=== PATIENT | male | born 1995 | race Caucasian/White ===

== ENCOUNTER 2017-05-15 15:21 | Inpatient (IN) | payer OTHER ==
--- NOTE | 2017-05-15 16:03 | ED ---
Psychiatric Complaint - HPI Summary HPI Summary: 21M presents with suicidal ideation that have been getting worst the past three weeks. 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 He has had suicide attempts in past in high school. He says he would jump off a bridge but he is too scared of heights to do it currently. He states he is depressed because he does not know what he is going to do with his life. He denies any psych diagnosis. He denies any previous admission for psych reasons. He occasionally smokes, drinks ETOH and uses marijiuna. - History Of Current Complaint Chief Complaint: EDMentalHealth Time Seen by Provider: 05/15/17 15:28 - Allergies/Home Medications Allergies/Adverse Reactions: Allergies Allergy/AdvReac Type Severity Reaction Status Date / Time No Known Allergies Allergy Verified 05/15/17 15:21 PMH/Surg Hx/FS Hx/Imm Hx Endocrine/Hematology History: Denies: Hx Anticoagulant Therapy Opthamlomology History: Reports: Hx Contacts or Glasses, Hx Legally Blind Infectious Disease History: Denies: Traveled Outside the [place] in Last 30 Days - Family History Known Family History: Positive: Other - depression - Social History Alcohol Use: Occasionally Substance Use Type: Reports: Marijuana Smoking Status (MU): Light Every Day Tobacco Smoker Review of Systems Negative: Fever Negative: Chest Pain Negative: Shortness Of Breath Positive: Depressed All Other Systems Reviewed And Are Negative: Yes Physical Exam Triage Information Reviewed: Yes Vital Signs On Initial Exam: Initial Vitals Temp Pulse Resp BP Pulse Ox 97.8 F 93 16 141/96 97 05/15/17 15:21 05/15/17 15:21 05/15/17 15:21 05/15/17 15:21 05/15/17 15:21 Vital Signs Reviewed: Yes Appearance: Positive: Well-Appearing Skin: Positive: Warm, Dry Head/Face: Positive: Normal Head/Face Inspection Eyes: Positive: Normal, Conjunctiva Clear Respiratory/Lung Sounds: Positive: Clear to Auscultation, Breath Sounds Present Cardiovascular: Positive: Normal, RRR Abdomen Description: Positive: Nontender, Soft Bowel Sounds: Positive: Present Diagnostics - Vital Signs Vital Signs Temp Pulse Resp BP Pulse Ox 05/15/17 15:21 97.8 F 93 16 141/96 97 - Laboratory Result Diagrams: 05/15/17 17:07 05/15/17 17:07 Lab Statement: Any lab studies that have been ordered have been reviewed, and results considered in the medical decision making process. Course/Dx - Course Course Of Treatment: 21M presents with suicidal ideation that have been getting worst the past three weeks. 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 He has had suicide attempts in past in high school. He says he would jump off a bridge but he is too scared of heights to do it currently. He states he is depressed because he does not know what he is going to do with his life. He denies any psych diagnosis. He denies any previous admission for psych reasons. He occasionally smokes, drinks ETOH and uses marijiuna. patient is medically clear for E. patient will be admitted to . - Differential Dx/Clinical Impression Differential Diagnosis/HQI/PQRI: Positive: Depression, Suicide Attempt, Suicidal Ideation Provider Diagnosis: Depression, Suicidal ideation Discharge - Discharge Plan Condition: Stable [place] [place]errals: No Primary Care Phys,NOPCP [Primary Care Provider] -
[2017-05-15 17:19] LABS: Hematocrit 49 % (42-52); Hemoglobin 16.9 g/dl (14.0-18.0); Mean Corpuscular HGB Conc 34 g/dl (31-36); Mean Corpuscular Hemoglobin 30 pg (27-31); Mean Corpuscular Volume 87 fL (80-94); Mean Platelet Volume 8 um3 (7.4-10.4); Red Blood Count 5.66 10^6/ul (4.0-5.4); Red Cell Distribution Width 13 % (10.5-15); White Blood Count 6.9 10^3/ul (3.5-10.8)
[2017-05-15 17:33] LABS: ALT 25 U/L (7-52); AST 19 U/L (13-39); Albumin 4.8 g/dL (3.2-5.2); Alkaline Phosphatase 53 U/L (34-104); Anion Gap 5 mmol/L (2-11); Blood Urea Nitrogen 11 mg/dL (6-24); CO2 Carbon Dioxide 29 mmol/L (22-32); Calcium 9.7 mg/dL (8.6-10.3); Chloride 102 mmol/L (101-111); EGFR African American 132.3 (>60); EGFR Non-African American 102.9 (>60); Globulin 2.9 g/dL (2-4); Glucose 82 mg/dL (70-100); Potassium 4.2 mmol/L (3.5-5.0); Sodium 136 mmol/L (133-145); Total Protein 7.7 g/dL (6.4-8.9)
[2017-05-15 17:51] LABS: Acetaminophen < 15 mcg/mL; Alcohol < 10 mg/dL (<10); Salicylate < 2.50 mg/dL (<30)
[2017-05-15 18:01] LABS: TSH (Thyroid Stimulating Horm) 0.71 mcIU/mL (0.34-5.60)
--- NOTE | 2017-05-15 22:58 | ED ---
Keith Delgado Alfonso, scribed for Paul Maza MD on 05/15/17 at 2254 . Progress - Progress Note Progress Note: After [facility], patient will be involuntarily admitted to [facility]. Patient's condition is stable and papers are signed. Diagnoses are depression and SI. - Consult/PCP Time Called: 19:00 Course/Dx - Course Course Of Treatment: 21M presents with suicidal ideation that have been getting worst the past three weeks. 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 He has had suicide attempts in past in high school. He says he would jump off a bridge but he is too scared of heights to do it currently. He states he is depressed because he does not know what he is going to do with his life. He denies any psych diagnosis. He denies any previous admission for psych reasons. He occasionally smokes, drinks ETOH and uses marijiuna. patient is medically clear for [facility] - Diagnoses Provider Diagnoses: Depression, Suicidal ideation The documentation as recorded by the Keith armas Alfonso accurately reflects the service I personally performed and the decisions made by me, Paul Maza MD.
[2017-05-16] MEDS ORDERED: Nicotine GUM* 2 MG PO PRN (00:43)
[2017-05-16] MEDS ORDERED: Nicotine Inhaler* 10 MG AMP INH PRN (00:43)
[2017-05-16] MEDS ORDERED: Acetaminophen TAB* 325 MG PO PRN (00:43)
[2017-05-16] MEDS ORDERED: Al Hydrox/Mg Hydrox/Simet LIQ* 30 ML UDC PO PRN (00:43)
[2017-05-16] MEDS ORDERED: Mouth Piece, Nicotine* 1 EACH CARTRIDGE INH ONE (01:00)
[2017-05-16] MEDS: Vitamin THERAPEUTIC TAB PO SCH (10:16)
--- NOTE | 2017-05-16 15:23 | ADMNOTE ---
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 He thinks this the end of his carrier and thats why he didn't want to live anymore. During todays evaluation he remains upset especially towards the departing blaiming the Professors/mentors for being focused on their research and publications than on the students resulting in his failure. Believes that if discharged he can handle his life better. Denies mood, thought or perceptual disturbances. Also denies active suicidal or homicidal thoughts. Lives alone in an one bedroom appartment. Legally blind. Exam Appearance: Healthy Appearing Hygiene: Normal Grooming: Fairly Well Kept Psychomotor Activities: Abnormal-Increased Exhibits Abnormal Movement: No Attitude and Relatedness: Cooperative Eye Contact: Poor - Speech Quality: Pressured Latencies: Short Quantity: Copious Patient's Decription of Mood: "Terrible" Observed Affect: Expansive Affect Consistent with: Dysphoria Patient's Thought Process: Coherent, Circumstantial, Over Inclusive Thought Content: Yes Passive Wish, Yes Suicidal Planning, No Homicidal Ideation, No Paranoid Ideation Experiencing Hallucinations: No, Sensorium is Clear Type of Hallucinations: Visual: No, Auditory: No, Command: No Level of Consciousness: Alert Orientation: Yes Intact, Yes Orientated to Time, Yes Orientated to Place, Yes Orientated to Person Impulse Control: Tenuous Insight and Judgement: Impaired Impression - Impression Clinical Impression: 21 y/o white [employer] grad. student with no prior h/o hospitalization has contemplated suicide in the context of academic failure in his PhD class. Merits Inpatient Hospitalization: Yes - [facility] Mental Illness: Adjustment d/o with depressed mood. - [facility] III Medical Illness: Legal blindness. Plan - Treatment Plan Continued Medication Management: Consider Medication Medications: Current Medications Acetaminophen (Tylenol Tab*) 650 mg PO Q4H PRN PRN Reason: PAIN or TEMP > 101 F Al Hydrox/Mg Hydrox/Simethicone (Maalox Plus*) 30 ml PO Q4H PRN PRN Reason: INDIGESTION Multivitamins (Theragran Tab*) 1 tab PO DAILY SALLY Last Admin: 05/16/17 10:16 Dose: Not Given Nicotine (Nicotine Inhaler*) 10 mg INH Q2H PRN PRN Reason: CRAVING Nicotine Polacrilex (Nicotine Gum*) 2 mg PO Q2H PRN PRN Reason: CRAVING - Discharge Plan Discharge Plan: Outpatient Follow Up Outpatient Program: Counseling/Psych Services at [facility]
--- NOTE | 2017-05-16 17:54 | HP ---
HISTORY AND PHYSICAL: DATE OF ADMISSION: IDENTIFYING DATA: Vipin is a 21-year-old white male, [employer] student, with no prior histor y of psychiatric treatment or hospitalization, was brought in to the emergency department by [place] Police following a call from one his friends who reported that Vipin was contemplating to jump o ff a bridge to commit suicide in the context of academic failures in his Ph.D. class. On today's ev aluation, Vipin acknowledges his failures; however, claims that his failure is related to the de partment's preoccupation with research and publication than focusing on the students. He feels like on his own he worked hard without any progress and hoped that he will succeed. However, he did not take the failure easily and is unsure about his future. Moreover, he believes that his future is c ompletely ruined and there is no purpose of his life. PAST PSYCHIATRIC HISTORY: Vipin reports that he has seen a psychologist in the past for behavioral school counselors ing following couple of relationship failures and continues to see a therapist at [facility] for the sa me reason. He has never been on any medications or assessed by a psychiatrist. PAST MEDICAL HISTORY: Legal blindness. ALLERGIES: No known drug allergies. SUBSTANCE ABUSE HISTORY: Unremarkable. Occasionally, drinks and smokes pot. Otherwise, denies in drugs or alcohol on regular basis. FAMILY HISTORY: He has 1 older brother. His parents live in [place] where he was born and raised u p to his high school. He denies any mental illness in his family. 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 He j ust failed in his first year Ph.D. class and was so disappointed that he thought his academic life i s completed ruined. Currently, he is not in any significant relationship. He is supported by the cleve morales from [employer] [employer]. He also receives some financial support from his parents who live in [place] [facility] [facility]. PHYSICAL EXAMINATION Physical exam was offered, he declined. I have reviewed the physical exam done in the emergency quan , which is unremarkable. He does not appear to be in any physical distress at this time. Vitals t akmarilia in the emergency room showed a blood pressure of 141/96, pulse 93, respirations 16, pulse ox 94 %, temperature 97.8. MENTAL STATUS EXAMINATION: Vipin is average height, average weight, male, wearing a paper scrub. Alert and oriented to time, place, and person. Describes his mood as terrible. Observ ed affect appeared to be dysphoric and irritable. Makes poor eye contact. Speech is somewhat press ured and circumstantial and overinclusive. Thought process is goal directed. Thought content is de void of any delusions or active suicidal ideation. Denies hallucinations. Intelligence appears to be average as evidenced by his vocabulary and fund of knowledge. Memory functions are intact in all spheres. Insight and judgment impaired. LABORATORY DATA: Labs done in the emergency room were also unremarkable with a WBC count of 6.9, he moglobin 16.9, hematocrit 49, platelets 232. Comprehensive metabolic profile showed a sodium of 136 , potassium 4.2, chloride 102, carbon dioxide 29, BUN 11, creatinine 0.92. Urinalysis and urine smitha g screen were unremarkable. 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 He denies any mood, thoughts, or perceptual disturbances at this time. States he is just disa ppointed with his failure and blames his professors and/or mentors for his failure as they are all f ocused on their own publications and research, not involved in teaching. MENTAL HEALTH DIAGNOSIS: Adjustment disorder with depressed mood. PHYSICAL HEALTH DIAGNOSIS: Legal blindness. TREATMENT RECOMMENDATIONS: Vipin will benefit from a brief hospitalization on behavioral health unit for his protection and diagnostic clarification. His code status will remain full. Supportiv e milieu, individual, and group therapy will be offered. At this time, I do not see any reason for any medication for his current psychotic condition; however, I will defer the decision to his assign ed psychiatrist on the unit. [id number]/[facility] #: [id number]
[2017-05-17] MEDS: Vitamin THERAPEUTIC TAB PO SCH (09:27)
[2017-05-17] MEDS ORDERED: diPHENhydraMINE PO* 50 MG ONE (23:45)
[2017-05-17] MEDS ORDERED: diPHENhydraMINE PO* 50 MG PO PRN (23:45)
[2017-05-18 08:16] VITALS: BP 147/79
[2017-05-18] MEDS: Vitamin THERAPEUTIC TAB PO SCH (09:35)
--- NOTE | 2017-05-19 23:48 | DS ---
DISCHARGE SUMMARY: DATE OF ADMISSION: 05/15/17 DATE OF DISCHARGE: 05/18/17 SUPERVISING PSYCHIATRIST: Roger Baldwin MD DISCHARGE DIAGNOSES: 1. Adjustment disorder with depressed mood. 2. Unspecified depressive disorder. CONDITION AT TIME OF DISCHARGE: Improved. Vipin denies suicidal ideation. He states that he did have suicidal thoughts after meeting with his academic affairs coordinator. He reports he was talking with friends in the hopes of gaining emotional sup port. He feels that friend overreacted when they called the police. Vipin understands the urge ncy of the reasons that friends called the police. During psychiatric interview today, Vipin is cooperative, talkative and forward thinking. He states he has a meeting today at 1 p.m. with his a cademic team to discuss his master's plan. He reports he has contemplated the fact that he is no lo nger in the Ph.D. program due to failing the qualifying exam and is content with pursuing the master 's program. Vipin is very verbal about his stressors in regards to academic life. He states he has been generally disappointment in his experience at [employer]. He recalls a much more supportive environment when studying under grad in [place]. He also cites his physical disability of legal b lindness as a stressor. He states that he does not feel that his cohort or his department have been helpful in this regard as either. Vipin also reports that he is generally a social person and has little social outlets in this community. He identifies coping skills of meditation, music, mind fulness. He states that he has a good relationship with his counselor at [facility], who is Arden Young. He states that he appreciates his support and interactions with Arden. Arden is on vacation this [facility] and Vipin is willing to meet another [facility] counselor in the interim. MENTAL STATUS EXAM: The patient is adequately groomed wearing hospital scrubs. He jokes that he wi shes he had a chair frame builder as he generally likes to style his hair. Prior to interview, he is enticed by the keyboard and states that he has missed not playing music for the past 3 days. He is cooperat marcy and talkative. He sits on the couch in the comfort room during interview. He is alert and orie nted x3. His concentration is good. His recall is 3/3. His mood is "good." Affect is bright. Spe ech is rapid, soft volume, likely typical for a patient. Thought process is logical, coherent, goal directed. Content and thought are negative for SI, HI, or . He is looking forward to meeting wi th his academic team to discuss next course of action in his graduate studies. Insight is good. Ju dgment is good. Fund of knowledge is excellent. Instructions were given to the patient by nursing staff, there are no medication at this time. Vipin states that he is not opposed to medications , but would prefer not to take them. Diet is regular. Activity is ambulation as tolerated and toba accounting tutor cessation not applicable. There are no pending labs or diagnostic studies at the time of discha rge. HOSPITAL COURSE: A. 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 He was brought into the emergency dep artment by [place] Police following a call from one of his friend who reported that Vipin had mad e statements to jump off of a particular bridge to commit suicide. He recently failed a qualifying exam in his Ph.D. program. B. Psychiatric treatment rendered: Vipin was admitted under voluntary status to adult behavior al services unit. His code status was full. He was placed on a 15-minute check for safety. He par ticipated in supportive milieu, individual and group psychoeducation. He declined offer of psychoph armacology and this did not seem to be an emergent need by the admitting psychiatrist. Vipin wa s safe on all checks. He denied suicidality. Communication between the unit and [employer] [facility] tamiko helped with discharge planning. He agreed to follow up with his counseling staff at [place] upon discharge. Vipin stated the understanding for the reason for admission. He also reported frustration at the environment of the locked unit and his difficulty with not being knowledgeable a bout the structural environment. This is directly related to his disability of legal blindness and having one prosthetic eye. He continued to deny suicidal ideation and due to an obligation to treat in a less restrictive setting, discharge planning began an order to discharge him. He was given sanna bourne instructions by nursing staff and reported ability to pay for his cab back to his home. Ove r the course of the admission, Vipin reported contentment with the change in plan of graduate st [employer] from Ph.D. program to master's program. CARLOS LIVINGSTON, EXECUTIVE ADMINISTRATIVE ASST [id number]/[facility] #: [id number]
== END 2017-05-18 11:30 | disposition home or self-care (01) | DRG 754 ==
LOC: ED 15:21 → BSU 05-16 00:07
PROVIDERS: ADMIT Psychiatry & Neurology Psychiatry; ATTEND Psychiatry & Neurology Psychiatry
DX: F43.21 Adjustment disorder with depressed mood (principal); R45.851 Suicidal ideations; H54.8 Legal blindness, as defined in USA
CPT/HCPCS: 36415; 80053; 80320; 80329; 84443; 85025; 99222; A9270-GY; G0480